=== PATIENT | male | born 2005 | race Two or more races ===

== ENCOUNTER 2024-04-20 10:11 | Outpatient (RCR) | payer MEDICAID, SELFPAY ==
--- NOTE | 2024-04-20 10:43 | PT.OIERPT ---
PT OP Initial Eval Patient Information Outpatient Physical Therapy Treatment Date: 04/20/24 Visit Reasons: Right Acromioclavicular Dislocation Medical Diagnosis: [id number] Treatment Dx #1: Right Shoulder Pain Treatment Dx #2: Right Shoulder Weakness Start of Care: 04/20/24 Date of Onset: Jan 2024 Smoking Status Smoking Status: Never smoker Initial Assessment Subjective: Pt is a 18 y/o male reports of right shoulder pain (2/10) after he dislocated AC joint while playing basketball. Pt still has limitation with lifting, pushing, overhead motions, and recreational activities. Objective: Right Shoulder AROM: all motions are WFL with end range pain into abduction Right Shoulder MMTs: grossly 4-/5 Right Scapula MMTs: grossly 3+/5 Special Test (+) AC joint compression test Assessment: Pt demonstrate functional right shoulder mobility and strength, however, has pain limiting certain ADLs. Pt will benefit from physical therapy to increase AROM, strength, and stability. Short Term and Group Home Goals 1) Increase right shoulder AROM WNL in 6 wks to be able to perform overhead motions 2) Increase right shoulder MMTs grossly to 4/5 in 6 wks to be able to perform lifting activities 3) Decrease shoulder pain to 1/10 in 6 wks to be able to resume recreational activities 4) Indep with HEP Treatment Plan 1) Manual Therapy 2) Therapeutic Activities 3) Therapeutic Exercises 4) Modalities (ice, heat) Frequency and Duration: 2 x wk for 6 wks Certification Dates: 04/20/24 to 07/19/24 Procedure Charges OP PT Eval Mod Complex 30 minutes: Yes
== END 2024-04-27 23:59 | disposition home or self-care (01) ==
LOC: CPTX 10:11
PROVIDERS: PCP Physician Assistant Medical; Referring Provider Physician Assistant Medical; Visit Provider Physician Assistant Medical
DX: M25.511 Pain in right shoulder (principal); R53.1 Weakness; X58.XXXD Exposure to other specified factors, subsequent encounter; S43.101D Unspecified dislocation of right acromioclavicular joint, subsequent encounter
CPT/HCPCS: 97162

== ENCOUNTER 2024-05-18 08:30 | Outpatient (RCR) | payer MEDICAID, SELFPAY ==
--- NOTE | 2024-05-11 10:23 | PT.ODAYNRPT ---
PT Outpatient Daily Note OP Daily Note Outpatient Physical Therapy Treatment Date: 05/11/24 Visit Reasons: Right shoulder weakness Subjective: Pt's shoulder feels better. No new concerns to report. Objective: Please see flow chart for list of ther ex performed Assessment: tolerate exercises performed; slight fatigue post PT session Plan: Continue with PT Length of Time (minutes) of Treatment: 30 Minutes Procedure Charges Therapeutic Exercise 30 minutes: Yes
--- NOTE | 2024-05-18 16:14 | PT.ODAYNRPT ---
PT Outpatient Daily Note OP Daily Note Outpatient Physical Therapy Treatment Date: 05/18/24 Visit Reasons: Right shoulder weakness Subjective: Pt's shoulder feels good. No new concerns. Objective: Please see flow chart for list of ther ex performed Assessment: progressing wtih stability exercises improved control with body blade exercises Plan: Continue with PT Length of Time (minutes) of Treatment: 30 Minutes Procedure Charges Therapeutic Exercise 30 minutes: Yes
== END 2024-05-28 23:59 | disposition home or self-care (01) ==
LOC: CPTX 08:30
PROVIDERS: PCP Physician Assistant Medical; Referring Provider Physician Assistant Medical; Visit Provider Physician Assistant Medical
DX: M25.511 Pain in right shoulder (principal); R53.1 Weakness; S43.101D Unspecified dislocation of right acromioclavicular joint, subsequent encounter; X58.XXXD Exposure to other specified factors, subsequent encounter
CPT/HCPCS: 97110

== ENCOUNTER → 2024-05-25 | Outpatient (CLI) | payer MEDICAID, SELFPAY ==
--- NOTE | 2024-05-25 | XR_ITS ---
Examination: Shoulder,right, 3 views Technique: Shoulder AP internal rotation, AP external rotation, Y view shoulder, 3 views Exam date and time :May 17, 2024 at 1322 hours INDICATIONS: Sports injury to the shoulder 2 months ago with shoulder pain. FINDINGS: No shoulder fracture or dislocation 3 mm AC joint offset IMPRESSION: No shoulder fracture or shoulder dislocation 3 mm AC joint offset
== END | disposition home or self-care (01) ==
PROVIDERS: PCP Physician Assistant Medical; Referring Provider Physician Assistant Medical; Visit Provider Physician Assistant Medical
DX: S43.101A Unspecified dislocation of right acromioclavicular joint, initial encounter (principal); X58.XXXA Exposure to other specified factors, initial encounter
CPT/HCPCS: 73030